=== PATIENT | male | born 1945 | race African-American/Black ===

== ENCOUNTER 2024-07-07 12:12 | Emergency (ER) | payer MEDICARE, OTHER, SELFPAY ==
[2024-07-07] VITALS (11 sets, daily range): BP systolic 100–136; BP diastolic 71–88; PULSE 37–89; RESP 10–21; TEMP 36.6–36.7; O2SAT 92–100; BMI 28.3
--- NOTE | 2024-07-07 12:22 | PC.NURSE ---
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 pt fell and had +LOC. pt c/o L humeral pain that is sharp and 10/10. pt states he is unable to lift his arm. pt is on eliquis. pt A&OX4
--- NOTE | 2024-07-07 12:22 | PC.NURSE ---
ASSESSMENT pt arrived to room
--- NOTE | 2024-07-07 12:26 | ECG_ITS ---
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
--- NOTE | 2024-07-07 12:35 | CT_ITS ---
FINAL REPORT TECHNIQUE: Noncontrast exam This study was performed with techniques to keep radiation doses as low as reasonably achievable, (ALARA). Individualized dose reduction techniques using automated exposure control or adjustment of mA and/or kV according to the patient's size were employed. CLINICAL HISTORY: fall, head trauma COMPARISON: None FINDINGS: Mild atrophy and chronic ischemic white matter changes are noted. No cortical edema is present. There is no mass or hemorrhage. Ventricles are normal. Bone windows show no skull fracture or obvious obstructive lesion. IMPRESSION: No acute intracranial abnormality or obvious mass. Mild atrophy and chronic ischemic white matter changes as above. Reviewed, Interpreted and Dictated by May Gaspar MD Transcribed by Chloe Grullon Authenticated and [facility]
--- NOTE | 2024-07-07 12:35 | XR_ITS ---
FINAL REPORT CLINICAL HISTORY: Fall COMPARISON: None FINDINGS: SINGLE VIEW PELVIS: A single view of the pelvis was obtained. There is no acute fracture or dislocation. Vizualized joint spaces are normally aligned. Soft tissues are unremarkable. IMPRESSION: No acute bony abnormality. Reviewed, Interpreted and Dictated by May Gaspar MD Transcribed by Jazz Nicholson Authenticated and [facility]
--- NOTE | 2024-07-07 12:35 | CT_ITS ---
FINAL REPORT TECHNIQUE: Thin section axial CT with sagittal reconstruction without contrast This study was performed with techniques to keep radiation doses as low as reasonably achievable, (ALARA). Individualized dose reduction techniques using automated exposure control or adjustment of mA and/or kV according to the patient''s size were employed. CLINICAL HISTORY: fall COMPARISON: None FINDINGS: CT CERVICAL SPINE: CT examination of the cervical spine demonstrates degenerative disc disease at multiple levels, most severe at the C6-7 level. No fracture or malalignment is identified. Multilevel degenerative changes are present without acute bony abnormality. Note is made of thyromegaly with bilateral thyroid nodules present. IMPRESSION: Degenerative disc disease without acute bony abnormality. Thyromegaly with bilateral thyroid nodules. If further evaluation is desired, thyroid ultrasound is suggested. Reviewed, Interpreted and Dictated by May Gaspar MD Transcribed by Chloe Grullon Authenticated and [facility]
--- NOTE | 2024-07-07 12:35 | XR_ITS ---
FINAL REPORT CLINICAL HISTORY: Fall COMPARISON: None FINDINGS: No acute pulmonary opacity is present. There is no evidence of effusion or pneumothorax. Mediastinum is unremarkable. A left-sided pacer is present. Heart size is mildly enlarged. IMPRESSION: No acute findings. Reviewed, Interpreted and Dictated by May Gaspar MD Transcribed by Jazz Nicholson Authenticated and [facility]
--- NOTE | 2024-07-07 12:36 | XR_ITS ---
FINAL REPORT CLINICAL HISTORY: Fall, left shoulder/arm pain COMPARISON: None FINDINGS: 3 views of the left shoulder show no evidence of acute displaced fracture or dislocation of the visualized bony architecture. There are mild degenerative changes. Superior subluxation is noted of the glenohumeral joint, probably related to rotator cuff disease. IMPRESSION: No acute bony abnormality. Reviewed, Interpreted and Dictated by May Gaspar MD Transcribed by Jazz Nicholson Authenticated and [facility]
--- NOTE | 2024-07-07 12:37 | XR_ITS ---
FINAL REPORT CLINICAL HISTORY: Fall, left shoulder/arm pain COMPARISON: None FINDINGS: Two views show no evidence of an acute, displaced fracture of the visualized bony architecture. There is superior subluxation of the humeral head, likely related to rotator cuff disease. IMPRESSION: No acute bony abnormality. Reviewed, Interpreted and Dictated by May Gaspar MD Transcribed by Jzaz Nicholson Authenticated and . [facility]
--- NOTE | 2024-07-07 12:51 | ED_ITS ---
Discharge Plan Disposition Patient Disposition: Home, Self-Care Condition: Good Referrals Follow up/Referrals: Provider,Referral, MD [Primary Care Provider] - See instructions Activity Restrictions/Add. Instructions Additional Instructions/Restrictions: Please return to the emergency department for any worsening signs or symptoms. Please follow-up with PCP and flag decorator within the upcoming days. Please call for the detailed report of your echocardiogram that was performed here today. Per flag decorator estimate you have a 25% ejection fraction. Please follow-up with your flag decorator for comparison of past echocardiograms. Clinical Impressions Clinical Impression: Episode of syncope, Pre-syncope, CHF (congestive heart failure), CAD (coronary artery disease), History of seizure, Type 2 diabetes mellitus Instructions Patient Instructions: DI for Syncope in Adults (Fainting) Print Language Print Language: Colombian Discharge ED Provider: Kailash Padgett Adult HPI <RE Aguila - Last Filed: 07/07/24 16:41> General Chief complaint: Syncope Stated complaint: AO-Fall 1150am-Pain in L shoulder Time Seen by Provider: 07/07/24 12:34 Mode of Arrival: Wheelchair Source of Information: Patient Limitations: No Limitations Description of Symptoms (Recalled from ER Triage Doc. by RN): Patient states he was standing when he got light headed and dizzy, and sustained a fall onto his left shoulder. Endorses pain in the left shoulder. Patient presents with . states, He has an extensive history. So I wanted to get him checked out. Denies pre-treating with OTC pain medication prior to arrival. History of Present Illness HPI narrative: This is a 78-year-old male who presents to the emergency department accompanied by his significant other for a presyncopal versus syncopal episode that happened this morning, patient states he was getting up and going to the kitchen when he felt a little bit lightheaded, however he ambulated unaffected to the kitchen when he had to stop at the counter , he remembers most of the event and prior to the event had some presyncopal type features however, he unsure if he completely lost consciousness. But states he was in the floor and admits to pain/striking the left shoulder,/arm, denies striking the head but he is quite unsure. Denies any neck pain, back pain, denies any fever chills admits to chronic cough, denies any chest pain, denies abdominal pain nausea vomiting constipation diarrhea, denies melena hematuria hematochezia or hematemesis, denies any urinary type symptomatology. Spouse/family members at the bedside and provides some of the history. Patient ambulates with a walker at baseline, has some balance deficits due to ongoing type 2 diabetes with diabetic polyneuropathy, osteoarthritis of both knees, patient also has past medical history consistent with TIA/CVA, atrial fibrillation with implantable pacemaker/defibrillator on anticoagulation therapy with Eliquis, CAD with status post 6-8 stents this is data deficient, patient has chronic cough and concern for agent orange , according to family at the bedside follows with glove cutter for several spots on the lung , for this. Other past medical history consistent with seizure disorder on antiepileptic therapy with Keppra, prior history of colon cancer status post right hemicolectomy, hyperlipidemia, he is on diuretic therapy with Bumex, and is on Entresto for data deficient heart failure GERD. Denies any history of current substance use is a former smoker denies any alcohol or drug use, initial triage vitals are unremarkable at this time. Onset (ago): hour(s) Related Data Allergies Allergy/AdvReac Type Severity Reaction Status Date / Time niacin Allergy Rash Verified 07/07/24 12:37 [facility] <RE Aguila - Last Filed: 07/07/24 16:41> [facility] Disclaimer: The information contained in this section may have been updated after the patient was seen, as this information can be updated by other users. Social History (Updated 07/07/24 @ 15:15 by Kailash Padgett MD) Smoking Status: Never smoker alcohol intake: never current occupational status: other Travel in the last 8 weeks: None Have you lived/traveled outside US in past 30 days?: No Contact w/someone who lives/traveled outside US past 30 days?: No Exposure to someone with infectious disease in past 14 days?: No Do you have a fever (greater than 100.4 F or 38 C)?: No Have you tested positive for COVID-19: No Exposed to someone with COVID-19 in past 14 days?: No Do you have a sore throat?: No Do you have a cough?: No Do you have any weakness?: No Do you have any diarrhea?: No Are you experiencing any unusual bleeding?: No Do you have any muscle aches/pain?: No Do you have any abdominal pain?: No Are you experiencing loss of taste or smell?: No <RE Aguila - Last Filed: 07/07/24 16:41> ROS Obtained: Yes All systems reviewed & no additional complaints except as documented Physical Exam <RE Aguila - Last Filed: 07/07/24 16:41> General General appearance: alert and in no apparent distress Head Head exam: atraumatic and normocephalic Eye Eye exam: Present PERRL and EOMI ENT ENT exam: Present mucous membranes moist Neck Neck exam: Present normal inspection Chest Chest inspection: Present normal inspection and symmetric chest wall rise Respiratory Respiratory exam: Present normal lung sounds bilaterally; Absent respiratory distress, wheezes, stridor or accessory muscle use Cardiovascular Cardiovascular exam: Present regular rate and normal rhythm Abdominal Exam Abdominal exam: Present soft and scar; Absent tenderness, guarding, rebound or rigidity Comment: Scars present from previous hemicolectomy, on the right lower quadrant. Otherwise nontenderness to palpation. Extremities Exam Extremities exam: Present normal inspection, tenderness, edema and other (There are some mild pain to palpation and pain limited range of motion to the left shoulder joint, shoulder examination/ligamentous test were deferred due to patient stated condition, pain to palpation over the proximal humerus, shoulder on the lateral aspect of the humeral head, extending to the mi); Absent full ROM Back Exam Back exam: Present normal inspection and full ROM; Absent tenderness, paraspinal tenderness or vertebral tenderness Neurological Exam Neurological exam: Present alert and oriented X3 Psychiatric Psychiatric exam: Present normal affect Skin Skin exam: Present warm and dry Medical Decision Making <RE Aguila - Last Filed: 07/07/24 16:41> Medical Records Medical records reviewed: Yes I reviewed the patient's medical records. Screening: Per USPSTF and CDC recommendations, given the prevalence of disease in our region, it is our hospital?s policy to screen for HIV and viral Hepatitis for all patients aged 18 and over and those with ongoing risk factors. [place]ilo Inquiry Pt receiving controlled substance: Yes Camilo was queried for this patient: No Vital Signs: 07/07/24 12:16 07/07/24 12:48 07/07/24 13:00 Temperature 98.1 F Temperature Source Oral Pulse Rate 82 Pulse Rate [Orthostatic Lying] 78 Pulse Rate [Orthostatic Sitting] 88 Pulse Rate [Orthostatic Standing] 89 Pulse Rate [Radial] 83 Respiratory Rate 16 Blood Pressure 100/71 L Blood Pressure [Orthostatic Lying Right Arm] 112/75 Blood Pressure [Orthostatic Sitting Right Arm] 104/75 L Blood Pressure [Orthostatic Standing Right Arm] 104/77 L Blood Pressure [Right Arm] 136/88 Blood Pressure Mean 77 Blood Pressure Mean [Right Arm] 104 Blood Pressure Source [Right Arm] Automatic Cuff 02 Sat by Pulse Oximetry 97 98 Oxygen Delivery Method Room Air Room Air 07/07/24 13:20 07/07/24 13:30 07/07/24 14:30 Temperature Temperature Source Pulse Rate 71 37 L 64 Pulse Rate [Orthostatic Lying] Pulse Rate [Orthostatic Sitting] Pulse Rate [Orthostatic Standing] Pulse Rate [Radial] Respiratory Rate 15 10 L 12 Blood Pressure 120/81 108/73 L Blood Pressure [Orthostatic Lying Right Arm] Blood Pressure [Orthostatic Sitting Right Arm] Blood Pressure [Orthostatic Standing Right Arm] Blood Pressure [Right Arm] Blood Pressure Mean Blood Pressure Mean [Right Arm] Blood Pressure Source [Right Arm] 02 Sat by Pulse Oximetry 96 96 98 Oxygen Delivery Method Room Air 07/07/24 15:04 07/07/24 15:30 07/07/24 16:01 Temperature Temperature Source Pulse Rate 79 75 75 Pulse Rate [Orthostatic Lying] Pulse Rate [Orthostatic Sitting] Pulse Rate [Orthostatic Standing] Pulse Rate [Radial] Respiratory Rate 21 18 20 Blood Pressure 117/75 106/78 L 136/80 Blood Pressure [Orthostatic Lying Right Arm] Blood Pressure [Orthostatic Sitting Right Arm] Blood Pressure [Orthostatic Standing Right Arm] Blood Pressure [Right Arm] Blood Pressure Mean Blood Pressure Mean [Right Arm] Blood Pressure Source [Right Arm] 02 Sat by Pulse Oximetry 92 L 99 100 Oxygen Delivery Method Room Air Room Air Room Air 07/07/24 16:30 07/07/24 16:44 Temperature 98 F Temperature Source Pulse Rate 78 81 Pulse Rate [Orthostatic Lying] Pulse Rate [Orthostatic Sitting] Pulse Rate [Orthostatic Standing] Pulse Rate [Radial] Respiratory Rate 15 19 Blood Pressure 123/82 123/82 Blood Pressure [Orthostatic Lying Right Arm] Blood Pressure [Orthostatic Sitting Right Arm] Blood Pressure [Orthostatic Standing Right Arm] Blood Pressure [Right Arm] Blood Pressure Mean Blood Pressure Mean [Right Arm] Blood Pressure Source [Right Arm] 02 Sat by Pulse Oximetry 100 Oxygen Delivery Method Room Air Lab Data Lab results reviewed: Yes I reviewed the patient's lab results. Lab Results 07/07/24 12:41: WBC 5.2, RBC 5.61, Hgb 15.2, Hct 47.8, MCV 85.2, MCH 27.1, MCHC 31.8, RDW 13.7, Plt Count 162, MPV 11.4 H, Neut % (Auto) 49.3, Lymph % (Auto) 38.4, Bulloch % (Auto) 10.0 H, Eos % (Auto) 1.7, Baso % (Auto) 0.4, Neut # (Auto) 2.6, Lymph # (Auto) 2.0, Bulloch # (Auto) 0.5, Eos # (Auto) 0.1, Baso # (Auto) 0.0, Sodium 137, Potassium 4.6, Chloride 103, Carbon Dioxide 29, Anion Gap 9.6, BUN 26 H, Creatinine 1.30 H, Estimated Creat Clear 62, Estimated GFR 53 L, Est GFR ( Amer) 64, Glucose 96, Calcium 9.6, Magnesium 1.7, Total Bilirubin 0.5, AST 34, ALT 37, Alkaline Phosphatase 60, Total Creatine Kinase 86, Troponin I < 0.01, NT-Pro-B Natriuret Pep 1220 H, Total Protein 7.3, Albumin 4.4, Globulin 2.9, Albumin/Globulin Ratio 1.5 07/07/24 15:30: Troponin I < 0.01 07/07/24 12:41 07/07/24 12:41 Orders (Tests/Meds): ED MEDICATIONS Discontinued Medications Generic Name Dose Route Start Last Admin Trade Name Freq PRN Reason Stop Dose Admin Hydrocodone Bitart/Acetaminophen 1 tab 07/07/24 12:47 07/07/24 13:02 Hydrocodone/Apap 5/325 Mg Tablet PO 07/07/24 12:48 1 tab ONCE ONE Administration ORDERS Category Date Time Status CT cervical spine wo con Stat Cat Scan 07/07/24 12:[address] head/brain wo con Stat Cat Scan 07/07/24 12:[address] humerus LT wo con Stat Cat Scan 07/07/24 13:[address] shoulder LT wo con Stat Cat Scan 07/07/24 13:46 Completed Humerus XR left [XR humerus LT] Stat Exams 07/07/24 12:37 Completed Pelvis XR 1-2 views [XR pelvis 1-2V] Stat Exams 07/07/24 12:35 Completed XR chest portable Stat Exams 07/07/24 12:35 Completed XR shoulder LT min 2V Stat Exams 07/07/24 12:36 Completed CK [Creatine Kinase] Stat Lab 07/07/24 12:41 Completed Complete Blood Count Auto Diff Stat Lab 07/07/24 12:41 Completed Comprehensive Metabolic Panel Stat Lab 07/07/24 12:41 Completed Magnesium Stat Lab 07/07/24 12:41 Completed NT Pro Brain Natriuretic Pep. Stat Lab 07/07/24 12:41 Completed Troponin I Q3H Lab 07/07/24 15:30 Completed Troponin I Q3H Lab 07/07/24 18:30 Ordered Troponin I Stat Lab 07/07/24 12:41 Completed CA echo doppler complete Stat Y 07/07/24 15:14 Completed Medical Decision Narrative: 78-year-old male presents the emergency department with a syncopal episode versus fall, complaining of left shoulder pain/arm pain, differential diagnosis could but limited to orthostatic hypotension, vasovagal syncope, situational syncope, seizure, proximal/shaft humerus fracture, shoulder dislocation, shoulder fracture, cardiogenic syncope, cardiac arrhythmia, electrolyte disturbance, ACS, cute SDH, cervicalgia or cervical spine fracture, intraparenchymal hemorrhage, acute traumatic SAH, closed head injury. I discussed patient case with attending physician Will obtain basic laboratory studies, will obtain troponin and proBNP EKG, creatinine kinase level, urinalysis, magnesium level, lactic acid level, obtain x-ray of the left shoulder, left humerus, chest and pelvis for further evaluation of the patient's fall. Also obtain CT cervical spine and CT head without contrast for further evaluation/characterization. Obtain orthostatic blood pressures, and give 5 mg p.o. [place] for pain. CMP is notable for elevated BUN at 26 and creatinine of 1.3, unsure if this is patient's baseline with extensive past medical history, could be in the setting of acute on chronic kidney disease. Total CK level within normal limits. Troponin within normal limits, proBNP is minimally elevated at 1220 CBC unremarkable orthostatic vital signs are negative, however will obtain repeat EKG The patient CT cervical spine without contrast on the corresponding radiologic report degenerative disc disease without any acute bony abnormality thyromegaly bilateral thyroid nodules a further evaluation desired thyroid ultrasound is suggested. I reviewed the patient's humerus x-ray along the corresponding radiologic report no acute bony abnormality Reviewed the patient's shoulder x-ray along the corresponding radiologic report no acute bony abnormality. Reviewed the patient's chest x-ray along the corresponding radiologic report no acute findings I reviewed the patient's pelvic x-ray along the corresponding radiologic report no acute bony abnormality. Will obtain CT of the left upper extremity shoulder and humerus without contrast for further evaluation as characterization of the patient's persistent shoulder pain/arm pain after fall and negative radiographs. I reviewed the patient's CT of the shoulder and CT of the left humerus along with corresponding radiologic report no acute process, there is a chronic superior subluxation of the humeral head. I discussed this patient's case with on-call flag decorator Dr. Light at approximately 1500, he recommends obtaining echocardiogram for comparison, if patient has decreased EF of 35% or less recommends admission for defibrillator placement. If EF is above 35% he recommends cardiology follow-up. I will order stat echocardiogram. I discussed this patient's case with the on-call flag decorator Dr. Light at 4:24pm, he was able to review the patient's echocardiogram via the PACS imaging system. Recommends admission for defibrillator because the patient's ejection fraction is estimated to be around 25%. I had a long discussion with the patient and family at the bedside regarding this. Patient actually has implantable pacemaker with defibrillator capabilities that was placed in 2011 status post cardiac ablation. Discussed this with flag decorator over the phone once again, patient has defibrillator can be discharged home to self-care with negative troponins EKG currently asymptomatic at the bedside. Patient will need to follow-up with PCP and flag decorator in the near upcoming days. Strict ED return precautions were given to the patient and family the bedside. Patient and family are in agreement with current treatment plan/discharge plan. Padgett: I was consulted by the RAN, and we discussed the complexity of problems being addressed. I approved the treatment and management plan for this patient's care in the emergency department, thus performing a substantial portion of the medical decision making. I personally evaluated the patient at bedside. I agree with the assessment and plan. Patient has limited range of motion of the left upper extremity secondary to pain and tenderness of the left shoulder but there is no obvious deformity, only slight swelling. Patient has full strength of the hand, neurovascularly intact distally. He does not have any new localizing neurologic deficits. 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 at bedside report patient ambulates with a cane/walker which he reports he was reaching for when he started to feel lightheaded before syncopizing. It does not sound like the patient had seizure activity and was not postictal after the fall.. He remembers everything that happened before and after. 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 Repeat ECG pending Repeat ECG approximately 1 hour after initial ECG demonstrates sinus rhythm, rate 74, similar appearing borderline left axis deviation, normal QTc, stable changes indicative of old VT, no STEMI, no dynamic changes. Chest and pelvic x-rays personally interpreted do not demonstrate acute traumatic injury, my personal interpretation, see radiology reads for final interpretation. Personally interpreted left shoulder and humerus x-ray and I do not appreciate obvious osseous injury, however patient still has significant proximal left upper extremity pain, concern for occult fracture. CT ordered. CT does not demonstrate acute osseous injury, chronic degenerative changes present. Patient does have evidence of fluid overload on labs with elevated BNP and chronic kidney disease but no other obvious acute abnormalities. Patient ambulated through the ER, oxygen saturation maintained between 94 and 96% with good heart rate, no hypotension. Cardiology consult recommends echo. Patient handed off to Dr. Patel pending echo. Kailash Padgett MD <Kailash Padgett MD - Last Filed: 07/07/24 15:15> [place] Inquiry Pt receiving controlled substance: No Vital Signs: 07/07/24 12:16 07/07/24 12:48 07/07/24 13:00 Temperature 98.1 F Temperature Source Oral Pulse Rate 82 Pulse Rate [Orthostatic Lying] 78 Pulse Rate [Orthostatic Sitting] 88 Pulse Rate [Orthostatic Standing] 89 Pulse Rate [Radial] 83 Respiratory Rate 16 Blood Pressure 100/71 L Blood Pressure [Orthostatic Lying Right Arm] 112/75 Blood Pressure [Orthostatic Sitting Right Arm] 104/75 L Blood Pressure [Orthostatic Standing Right Arm] 104/77 L Blood Pressure [Right Arm] 136/88 Blood Pressure Mean 77 Blood Pressure Mean [Right Arm] 104 Blood Pressure Source [Right Arm] Automatic Cuff 02 Sat by Pulse Oximetry 97 98 Oxygen Delivery Method Room Air Room Air 07/07/24 13:20 07/07/24 13:30 07/07/24 14:30 Temperature Temperature Source Pulse Rate 71 37 L 64 Pulse Rate [Orthostatic Lying] Pulse Rate [Orthostatic Sitting] Pulse Rate [Orthostatic Standing] Pulse Rate [Radial] Respiratory Rate 15 10 L 12 Blood Pressure 120/81 108/73 L Blood Pressure [Orthostatic Lying Right Arm] Blood Pressure [Orthostatic Sitting Right Arm] Blood Pressure [Orthostatic Standing Right Arm] Blood Pressure [Right Arm] Blood Pressure Mean Blood Pressure Mean [Right Arm] Blood Pressure Source [Right Arm] 02 Sat by Pulse Oximetry 96 96 98 Oxygen Delivery Method Room Air 07/07/24 15:04 07/07/24 15:30 07/07/24 16:01 Temperature Temperature Source Pulse Rate 79 75 75 Pulse Rate [Orthostatic Lying] Pulse Rate [Orthostatic Sitting] Pulse Rate [Orthostatic Standing] Pulse Rate [Radial] Respiratory Rate 21 18 20 Blood Pressure 117/75 106/78 L 136/80 Blood Pressure [Orthostatic Lying Right Arm] Blood Pressure [Orthostatic Sitting Right Arm] Blood Pressure [Orthostatic Standing Right Arm] Blood Pressure [Right Arm] Blood Pressure Mean Blood Pressure Mean [Right Arm] Blood Pressure Source [Right Arm] 02 Sat by Pulse Oximetry 92 L 99 100 Oxygen Delivery Method Room Air Room Air Room Air 07/07/24 16:30 07/07/24 16:44 Temperature 98 F Temperature Source Pulse Rate 78 81 Pulse Rate [Orthostatic Lying] Pulse Rate [Orthostatic Sitting] Pulse Rate [Orthostatic Standing] Pulse Rate [Radial] Respiratory Rate 15 19 Blood Pressure 123/82 123/82 Blood Pressure [Orthostatic Lying Right Arm] Blood Pressure [Orthostatic Sitting Right Arm] Blood Pressure [Orthostatic Standing Right Arm] Blood Pressure [Right Arm] Blood Pressure Mean Blood Pressure Mean [Right Arm] Blood Pressure Source [Right Arm] 02 Sat by Pulse Oximetry 100 Oxygen Delivery Method Room Air Lab Data Lab Results 07/07/24 12:41: WBC 5.2, RBC 5.61, Hgb 15.2, Hct 47.8, MCV 85.2, MCH 27.1, MCHC 31.8, RDW 13.7, Plt Count 162, MPV 11.4 H, Neut % (Auto) 49.3, Lymph % (Auto) 38.4, Bull[place] % (Auto) 10.0 H, Eos % (Auto) 1.7, Baso % (Auto) 0.4, Neut # (Auto) 2.6, Lymph # (Auto) 2.0, [place] # (Auto) 0.5, Eos # (Auto) 0.1, Baso # (Auto) 0.0, Sodium 137, Potassium 4.6, Chloride 103, Carbon Dioxide 29, Anion Gap 9.6, BUN 26 H, Creatinine 1.30 H, Estimated Creat Clear 62, Estimated GFR 53 L, Est GFR ( Amer) 64, Glucose 96, Calcium 9.6, Magnesium 1.7, Total Bilirubin 0.5, AST 34, ALT 37, Alkaline Phosphatase 60, Total Creatine Kinase 86, Troponin I < 0.01, NT-Pro-B Natriuret Pep 1220 H, Total Protein 7.3, Albumin 4.4, Globulin 2.9, Albumin/Globulin Ratio 1.5 07/07/24 15:30: Troponin I < 0.01 Orders (Tests/Meds): ED MEDICATIONS Discontinued Medications Generic Name Dose Route Start Last Admin Trade Name Freq PRN Reason Stop Dose Admin Hydrocodone Bitart/Acetaminophen 1 tab 07/07/24 12:47 07/07/24 13:02 Hydrocodone/Apap 5/325 Mg Tablet PO 07/07/24 12:48 1 tab ONCE ONE Administration ORDERS Category Date Time Status CT cervical spine wo con Stat Cat Scan 07/07/24 12:[address] head/brain wo con Stat Cat Scan 07/07/24 12:[address] humerus LT wo con Stat Cat Scan 07/07/24 13:[address] shoulder LT wo con Stat Cat Scan 07/07/24 13:46 Completed Humerus XR left [XR humerus LT] Stat Exams 07/07/24 12:37 Completed Pelvis XR 1-2 views [XR pelvis 1-2V] Stat Exams 07/07/24 12:35 Completed XR chest portable Stat Exams 07/07/24 12:35 Completed XR shoulder LT min 2V Stat Exams 07/07/24 12:36 Completed CK [Creatine Kinase] Stat Lab 07/07/24 12:41 Completed Complete Blood Count Auto Diff Stat Lab 07/07/24 12:41 Completed Comprehensive Metabolic Panel Stat Lab 07/07/24 12:41 Completed Magnesium Stat Lab 07/07/24 12:41 Completed NT Pro Brain Natriuretic Pep. Stat Lab 07/07/24 12:41 Completed Troponin I Q3H Lab 07/07/24 15:30 Completed Troponin I Q3H Lab 07/07/24 18:30 Ordered Troponin I Stat Lab 07/07/24 12:41 Completed CA echo doppler complete Stat Y 07/07/24 15:14 Completed Medical Decision Narrative: 78-year-old male presents the emergency department with a syncopal episode versus fall, complaining of left shoulder pain/arm pain, differential diagnosis could but limited to orthostatic hypotension, vasovagal syncope, situational syncope, seizure, proximal/shaft humerus fracture, shoulder dislocation, shoulder fracture, cardiogenic syncope, cardiac arrhythmia, electrolyte disturbance, ACS, cute SDH, cervicalgia or cervical spine fracture, intraparenchymal hemorrhage, acute traumatic SAH, closed head injury. I discussed patient case with attending physician Will obtain basic laboratory studies, will obtain troponin and proBNP EKG, creatinine kinase level, urinalysis, magnesium level, lactic acid level, obtain x-ray of the left shoulder, left humerus, chest and pelvis for further evaluation of the patient's fall. Also obtain CT cervical spine and CT head without contrast for further evaluation/characterization. Obtain orthostatic blood pressures, and give 5 mg p.o. [place] for pain. CMP is notable for elevated BUN at 26 and creatinine of 1.3, unsure if this is patient's baseline with extensive past medical history, could be in the setting of acute on chronic kidney disease. Total CK level within normal limits. Troponin within normal limits, proBNP is minimally elevated at 1220 CBC unremarkable orthostatic vital signs are negative, however will obtain repeat EKG The patient CT cervical spine without contrast on the corresponding radiologic report degenerative disc disease without any acute bony abnormality thyromegaly bilateral thyroid nodules a further evaluation desired thyroid ultrasound is suggested. I reviewed the patient's humerus x-ray along the corresponding radiologic report no acute bony abnormality Reviewed the patient's shoulder x-ray along the corresponding radiologic report no acute bony abnormality. Reviewed the patient's chest x-ray along the corresponding radiologic report no acute findings I reviewed the patient's pelvic x-ray along the corresponding radiologic report no acute bony abnormality. Will obtain CT of the left upper extremity shoulder and humerus without contrast for further evaluation as characterization of the patient's persistent shoulder pain/arm pain after fall and negative radiographs. I reviewed the patient's CT of the shoulder and CT of the left humerus along with corresponding radiologic report no acute process, there is a chronic superior subluxation of the humeral head. Padgett: I was consulted by the RAN, and we discussed the complexity of problems being addressed. I approved the treatment and management plan for this patient's care in the emergency department, thus performing a substantial portion of the medical decision making. I personally evaluated the patient at bedside. I agree with the assessment and plan. Patient has limited range of motion of the left upper extremity secondary to pain and tenderness of the left shoulder but there is no obvious deformity, only slight swelling. Patient has full strength of the hand, neurovascularly intact distally. He does not have any new localizing neurologic deficits. 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 at bedside report patient ambulates with a cane/walker which he reports he was reaching for when he started to feel lightheaded before syncopizing. It does not sound like the patient had seizure activity and was not postictal after the fall.. He remembers everything that happened before and after. 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 Repeat ECG pending Repeat ECG approximately 1 hour after initial ECG demonstrates sinus rhythm, rate 74, similar appearing borderline left axis deviation, normal QTc, stable changes indicative of old VT, no STEMI, no dynamic changes. Chest and pelvic x-rays personally interpreted do not demonstrate acute traumatic injury, my personal interpretation, see radiology reads for final interpretation. Personally interpreted left shoulder and humerus x-ray and I do not appreciate obvious osseous injury, however patient still has significant proximal left upper extremity pain, concern for occult fracture. CT ordered. CT does not demonstrate acute osseous injury, chronic degenerative changes present. Patient does have evidence of fluid overload on labs with elevated BNP and chronic kidney disease but no other obvious acute abnormalities. Patient ambulated through the ER, oxygen saturation maintained between 94 and 96% with good heart rate, no hypotension. Cardiology consult recommends echo. Patient handed off to Dr. Patel pending echo. Kailash Padgett MD <Steffanie N Patel, DO - Last Filed: 07/07/24 16:55> Vital Signs: 07/07/24 12:16 07/07/24 12:48 07/07/24 13:00 Temperature 98.1 F Temperature Source Oral Pulse Rate 82 Pulse Rate [Orthostatic Lying] 78 Pulse Rate [Orthostatic Sitting] 88 Pulse Rate [Orthostatic Standing] 89 Pulse Rate [Radial] 83 Respiratory Rate 16 Blood Pressure 100/71 L Blood Pressure [Orthostatic Lying Right Arm] 112/75 Blood Pressure [Orthostatic Sitting Right Arm] 104/75 L Blood Pressure [Orthostatic Standing Right Arm] 104/77 L Blood Pressure [Right Arm] 136/88 Blood Pressure Mean 77 Blood Pressure Mean [Right Arm] 104 Blood Pressure Source [Right Arm] Automatic Cuff 02 Sat by Pulse Oximetry 97 98 Oxygen Delivery Method Room Air Room Air 07/07/24 13:20 07/07/24 13:30 07/07/24 14:30 Temperature Temperature Source Pulse Rate 71 37 L 64 Pulse Rate [Orthostatic Lying] Pulse Rate [Orthostatic Sitting] Pulse Rate [Orthostatic Standing] Pulse Rate [Radial] Respiratory Rate 15 10 L 12 Blood Pressure 120/81 108/73 L Blood Pressure [Orthostatic Lying Right Arm] Blood Pressure [Orthostatic Sitting Right Arm] Blood Pressure [Orthostatic Standing Right Arm] Blood Pressure [Right Arm] Blood Pressure Mean Blood Pressure Mean [Right Arm] Blood Pressure Source [Right Arm] 02 Sat by Pulse Oximetry 96 96 98 Oxygen Delivery Method Room Air 07/07/24 15:04 07/07/24 15:30 07/07/24 16:01 Temperature Temperature Source Pulse Rate 79 75 75 Pulse Rate [Orthostatic Lying] Pulse Rate [Orthostatic Sitting] Pulse Rate [Orthostatic Standing] Pulse Rate [Radial] Respiratory Rate 21 18 20 Blood Pressure 117/75 106/78 L 136/80 Blood Pressure [Orthostatic Lying Right Arm] Blood Pressure [Orthostatic Sitting Right Arm] Blood Pressure [Orthostatic Standing Right Arm] Blood Pressure [Right Arm] Blood Pressure Mean Blood Pressure Mean [Right Arm] Blood Pressure Source [Right Arm] 02 Sat by Pulse Oximetry 92 L 99 100 Oxygen Delivery Method Room Air Room Air Room Air 07/07/24 16:30 07/07/24 16:44 Temperature 98 F Temperature Source Pulse Rate 78 81 Pulse Rate [Orthostatic Lying] Pulse Rate [Orthostatic Sitting] Pulse Rate [Orthostatic Standing] Pulse Rate [Radial] Respiratory Rate 15 19 Blood Pressure 123/82 123/82 Blood Pressure [Orthostatic Lying Right Arm] Blood Pressure [Orthostatic Sitting Right Arm] Blood Pressure [Orthostatic Standing Right Arm] Blood Pressure [Right Arm] Blood Pressure Mean Blood Pressure Mean [Right Arm] Blood Pressure Source [Right Arm] 02 Sat by Pulse Oximetry 100 Oxygen Delivery Method Room Air Lab Data Lab Results 07/07/24 12:41: WBC 5.2, RBC 5.61, Hgb 15.2, Hct 47.8, MCV 85.2, MCH 27.1, MCHC 31.8, RDW 13.7, Plt Count 162, MPV 11.4 H, Neut % (Auto) 49.3, Lymph % (Auto) 38.4, [place] % (Auto) 10.0 H, Eos % (Auto) 1.7, Baso % (Auto) 0.4, Neut # (Auto) 2.6, Lymph # (Auto) 2.0, [place] # (Auto) 0.5, Eos # (Auto) 0.1, Baso # (Auto) 0.0, Sodium 137, Potassium 4.6, Chloride 103, Carbon Dioxide 29, Anion Gap 9.6, BUN 26 H, Creatinine 1.30 H, Estimated Creat Clear 62, Estimated GFR 53 L, Est GFR ( Amer) 64, Glucose 96, Calcium 9.6, Magnesium 1.7, Total Bilirubin 0.5, AST 34, ALT 37, Alkaline Phosphatase 60, Total Creatine Kinase 86, Troponin I < 0.01, NT-Pro-B Natriuret Pep 1220 H, Total Protein 7.3, Albumin 4.4, Globulin 2.9, Albumin/Globulin Ratio 1.5 07/07/24 15:30: Troponin I < 0.01 Orders (Tests/Meds): ED MEDICATIONS Discontinued Medications Generic Name Dose Route Start Last Admin Trade Name Freq PRN Reason Stop Dose Admin Hydrocodone Bitart/Acetaminophen 1 tab 07/07/24 12:47 07/07/24 13:02 Hydrocodone/Apap 5/325 Mg Tablet PO 07/07/24 12:48 1 tab ONCE ONE Administration ORDERS Category Date Time Status CT cervical spine wo con Stat Cat Scan 07/07/24 12:[address] head/brain wo con Stat Cat Scan 07/07/24 12:[address] humerus LT wo con Stat Cat Scan 07/07/24 13:[address] shoulder LT wo con Stat Cat Scan 07/07/24 13:46 Completed Humerus XR left [XR humerus LT] Stat Exams 07/07/24 12:37 Completed Pelvis XR 1-2 views [XR pelvis 1-2V] Stat Exams 07/07/24 12:35 Completed XR chest portable Stat Exams 07/07/24 12:35 Completed XR shoulder LT min 2V Stat Exams 07/07/24 12:36 Completed CK [Creatine Kinase] Stat Lab 07/07/24 12:41 Completed Complete Blood Count Auto Diff Stat Lab 07/07/24 12:41 Completed Comprehensive Metabolic Panel Stat Lab 07/07/24 12:41 Completed Magnesium Stat Lab 07/07/24 12:41 Completed NT Pro Brain Natriuretic Pep. Stat Lab 07/07/24 12:41 Completed Troponin I Q3H Lab 07/07/24 15:30 Completed Troponin I Q3H Lab 07/07/24 18:30 Ordered Troponin I Stat Lab 07/07/24 12:41 Completed CA echo doppler complete Stat Y 07/07/24 15:14 Completed Medical Decision Narrative: 78-year-old male presents the emergency department with a syncopal episode versus fall, complaining of left shoulder pain/arm pain, differential diagnosis could but limited to orthostatic hypotension, vasovagal syncope, situational syncope, seizure, proximal/shaft humerus fracture, shoulder dislocation, shoulder fracture, cardiogenic syncope, cardiac arrhythmia, electrolyte disturbance, ACS, cute SDH, cervicalgia or cervical spine fracture, intraparenchymal hemorrhage, acute traumatic SAH, closed head injury. I discussed patient case with attending physician Will obtain basic laboratory studies, will obtain troponin and proBNP EKG, creatinine kinase level, urinalysis, magnesium level, lactic acid level, obtain x-ray of the left shoulder, left humerus, chest and pelvis for further evaluation of the patient's fall. Also obtain CT cervical spine and CT head without contrast for further evaluation/characterization. Obtain orthostatic blood pressures, and give 5 mg p.o. [place] for pain. CMP is notable for elevated BUN at 26 and creatinine of 1.3, unsure if this is patient's baseline with extensive past medical history, could be in the setting of acute on chronic kidney disease. Total CK level within normal limits. Troponin within normal limits, proBNP is minimally elevated at 1220 CBC unremarkable orthostatic vital signs are negative, however will obtain repeat EKG The patient CT cervical spine without contrast on the corresponding radiologic report degenerative disc disease without any acute bony abnormality thyromegaly bilateral thyroid nodules a further evaluation desired thyroid ultrasound is suggested. I reviewed the patient's humerus x-ray along the corresponding radiologic report no acute bony abnormality Reviewed the patient's shoulder x-ray along the corresponding radiologic report no acute bony abnormality. Reviewed the patient's chest x-ray along the corresponding radiologic report no acute findings I reviewed the patient's pelvic x-ray along the corresponding radiologic report no acute bony abnormality. Will obtain CT of the left upper extremity shoulder and humerus without contrast for further evaluation as characterization of the patient's persistent shoulder pain/arm pain after fall and negative radiographs. I reviewed the patient's CT of the shoulder and CT of the left humerus along with corresponding radiologic report no acute process, there is a chronic superior subluxation of the humeral head. I discussed this patient's case with on-call flag decorator Dr. Light at approximately 1500, he recommends obtaining echocardiogram for comparison, if patient has decreased EF of 35% or less recommends admission for defibrillator placement. If EF is above 35% he recommends cardiology follow-up. I will order stat echocardiogram. I discussed this patient's case with the on-call flag decorator Dr. Light at 4:24pm, he was able to review the patient's echocardiogram via the PACS imaging system. Recommends admission for defibrillator because the patient's ejection fraction is estimated to be around 25%. I had a long discussion with the patient and family at the bedside regarding this. Patient actually has implantable pacemaker with defibrillator capabilities that was placed in 2011 status post cardiac ablation. Discussed this with flag decorator over the phone once again, patient has defibrillator can be discharged home to self-care with negative troponins EKG currently asymptomatic at the bedside. Patient will need to follow-up with PCP and flag decorator in the near upcoming days. Strict ED return precautions were given to the patient and family the bedside. Patient and family are in agreement with current treatment plan/discharge plan. Padgett: I was consulted by the RAN, and we discussed the complexity of problems being addressed. I approved the treatment and management plan for this patient's care in the emergency department, thus performing a substantial portion of the medical decision making. I personally evaluated the patient at bedside. I agree with the assessment and plan. Patient has limited range of motion of the left upper extremity secondary to pain and tenderness of the left shoulder but there is no obvious deformity, only slight swelling. Patient has full strength of the hand, neurovascularly intact distally. He does not have any new localizing neurologic deficits. 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 at bedside report patient ambulates with a cane/walker which he reports he was reaching for when he started to feel lightheaded before syncopizing. It does not sound like the patient had seizure activity and was not postictal after the fall.. He remembers everything that happened before and after. 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 Repeat ECG pending Repeat ECG approximately 1 hour after initial ECG demonstrates sinus rhythm, rate 74, similar appearing borderline left axis deviation, normal QTc, stable changes indicative of old VT, no STEMI, no dynamic changes. Chest and pelvic x-rays personally interpreted do not demonstrate acute traumatic injury, my personal interpretation, see radiology reads for final interpretation. Personally interpreted left shoulder and humerus x-ray and I do not appreciate obvious osseous injury, however patient still has significant proximal left upper extremity pain, concern for occult fracture. CT ordered. CT does not demonstrate acute osseous injury, chronic degenerative changes present. Patient does have evidence of fluid overload on labs with elevated BNP and chronic kidney disease but no other obvious acute abnormalities. Patient ambulated through the ER, oxygen saturation maintained between 94 and 96% with good heart rate, no hypotension. Cardiology consult recommends echo. Patient handed off to Dr. Patel pending echo. MD Jorge Gunn DO: I was consulted by the RAN, and we discussed the complexity of the problems being addressed. I approved the treatment and management plan for this patient's care in the emergency department, thus performing a substantive portion of the medical decision making. Steffanie Patel DO Critical Care <Kailash Padgett MD - Last Filed: 07/07/24 15:15> Critical Care Time Critical Care Time: No
[2024-07-07 12:52] LABS: Basophils % 0.4 % (0.1-2.0); Eosinophils # 0.1 K/mm3 (0.0-0.4); Eosinophils % 1.7 % (0.1-12.0); Hematocrit 47.8 % (42.0-52.0); Hemoglobin 15.2 g/dL (14.1-18.0); Lymphocytes % 38.4 % (10-50); Mean Corpuscular HGB Conc 31.8 g/dL (31.8-35.4); Mean Corpuscular Hemoglobin 27.1 pg (27.0-31.2); Mean Corpuscular Volume 85.2 fl (80-94); Mean Platelet Volume 11.4 fl (7.4-10.4); Monocytes # 0.5 K/mm3 (0.1-1.0); Neutrophils # 2.6 K/mm3 (1.8-7.8); Neutrophils % 49.3 % (37.0-80.0); Platelet Count 162 K/mm3 (142-424); Red Blood Count 5.61 M/mm3 (4.60-6.20); Red Cell Distribution Width 13.7 % (11.5-17.5); White Blood Count 5.2 K/mm3 (4.8-10.8)
[2024-07-07 13:01] LABS: Albumin Level 4.4 g/dl (3.5-5.0); Chloride 103 mmol/L (98-107); Sodium 137 mmol/L (136-145)
[2024-07-07 13:02] LABS: Potassium 4.6 mmoL/L (3.5-5.1)
[2024-07-07] MEDS: HYDROCODONE/APAP 5/325 MG TABLET 1 TAB PO (13:02)
--- NOTE | 2024-07-07 13:02 | PC.NURSE ---
PT GONE TO CT AT THIS TIME VIA STRETCHER
[2024-07-07 13:04] LABS: Alanine Aminotransferase 37 U/L (12-78); Albumin/Globulin Ratio 1.5 (1.1-1.8); Alkaline Phosphatase 60 U/L (38-126); Anion Gap 9.6 mEq/L (5-15); Aspartate Amino Transferase 34 U/L (17-59); Bilirubin,Total 0.5 mg/dl (0.2-1.3); Blood Urea Nitrogen 26 mg/dl (9-20); Carbon Dioxide 29 mmol/L (22.0-30.0); Creatine Kinase 86 U/L (55-170); Creatinine Clearance Estimated 62 mL/min (50-200); Estimated Glomerular Filt Rate 53 ml/min (>60); GFR (African American) 64 ML/MIN (>60); Globulin 2.9 g/dL (1.3-3.2); Total Protein,Serum 7.3 g/dl (6.3-8.2)
[2024-07-07 13:05] LABS: Calcium 9.6 mg/dl (8.4-10.2); Glucose 96 mg/dl (74-100); Magnesium 1.7 mg/dl (1.6-2.3)
[2024-07-07 13:14] LABS: NT Pro Brain Natriuretic Pep. 1220 pg/mL (0-450)
[2024-07-07 13:18] LABS: Troponin I < 0.01 ng/ml (0.00-0.034)
--- NOTE | 2024-07-07 13:34 | ECG_ITS ---
APPROVED REPORT Exam: Resting ECG HR:74 bpm ECG Measurements Heart Rate 74 AXES NJ 202 P 30 QRSd 107 QRS -55 QT 372 T 65 QTc 399 Conclusion SINUS RHYTHM MINIMAL VOLTAGE CRITERIA FOR LVH, CONSIDER NORMAL VARIANT [MEETS CRITERIA IN ONE OF: R(aVL), S(V1), R(V5), R(V5/V6)+S(V1)] ANTERIOR MYOCARDIAL INFARCTION , OF INDETERMINATE AGE [40+ ms Q WAVE AND/OR ST/T ABNORMALITY IN V3/V4] INFERIOR MYOCARDIAL INFARCTION , PROBABLY OLD [40+ ms Q WAVE AND/OR ST/T ABNORMALITY IN II/aVF] Poor R wave progression, likely old anterior and inferior ND, no STEMI, no dynamic changes Electronically signed by : ERIC PABLO, 07/08/2024 07:08:12
--- NOTE | 2024-07-07 13:46 | CT_ITS ---
FINAL REPORT TECHNIQUE: Axial images through the left shoulder were performed by computed tomography. Sagittal and coronal reconstruction images were performed. This study was performed with techniques to keep radiation doses as low as reasonably achievable (ALARA). Individualized dose reduction techniques using automated exposure control or adjustment of mA and/or kV according to the patient's size were employed. CLINICAL HISTORY: Fall, shoulder pain COMPARISON: None FINDINGS: No fracture is identified. There is complete loss of the acromion humeral space, most likely related to chronic rotator cuff disease. There is moderate degenerative change of the glenohumeral joint. Mild degenerative changes are noted in the acromioclavicular joint. The scapula is intact. No soft tissue abnormality. IMPRESSION: Chronic changes without acute bony abnormality. Reviewed, Interpreted and Dictated by May Gaspar MD Transcribed by Jazz Nicholson Authenticated and . [facility]
--- NOTE | 2024-07-07 13:47 | CT_ITS ---
FINAL REPORT TECHNIQUE: Axial images through the left humerus were performed by computed tomography. Sagittal and coronal reconstruction images were performed. This study was performed with techniques to keep radiation doses as low as reasonably achievable (ALARA). Individualized dose reduction techniques using automated exposure control or adjustment of mA and/or kV according to the patient's size were employed. CLINICAL HISTORY: Fall, persistent shoulder/arm pain COMPARISON: None FINDINGS: No fracture is identified or bone destruction. No dislocation identified. No significant degenerative changes identified. There is chronic superior subluxation of the humeral head. No soft tissue abnormality. IMPRESSION: No acute process. Reviewed, Interpreted and Dictated by May Gaspar MD Transcribed by Jazz Nicholson Authenticated and [facility]
--- NOTE | 2024-07-07 13:54 | PC.NURSE ---
PT GONE TO CT AGAIN
--- NOTE | 2024-07-07 14:03 | PC.NURSE ---
PT ARRIVED BACK TO ROOM FROM CT
--- NOTE | 2024-07-07 14:45 | PC.NURSE ---
ROUNDED ON PT STATES NO NEEDS AT THIS TIME, AT BS AND CALL LIGHT IN REACH
--- NOTE | 2024-07-07 15:02 | PC.NURSE ---
Pt ambulating in the cotter with staff to obtain a oxygen saturation and HR during exertion.
--- NOTE | 2024-07-07 15:14 | CA_ITS ---
APPROVED REPORT EXAM: Comprehensive 2D, Doppler, and color-flow Echocardiogram Supervisor Photostat: Norah Singh, RT(R) Ht: 6 ft 0 in Wt: 209lbs BSA: 2.17 BP: 100/71 mmHg Indications: CHF, ex smoker, syncope, DM, hyperlipidemia, fall today with injury to left shoulder, hx TIA/CVA, AFIB, pacemaker/AICD, CAD, hx colon cancer, GERD. Patient states he has history of reduced EF. He states he thinks it was 35-40% at [facility] many years ago. 2D Dimensions LVEF (Hall's) 29.40 % M: 52 - 72 LV Volume 192.50 mL M: 62 - 150 LV Volume Index 88.7 mL/m2 M: 34 - 74 LA Volume 27.10 mL LA Volume Index 12.49 mL/m2 (M/F) 16-34 EF AP4 37.50 % EF AP2 24.0 % EF BP 29.4 % GL Strain -6.1 % M-Mode Dimensions RVDd 2.57 cm (0.9-2.6) LVDd 6.13 cm (3.5-5.7) LVDs 5.52 cm (3.5-5.7) IVSd 1.32 cm (0.6-1.1) PWd 0.95 cm (0.6-1.1) EF (Teich) 21.30% FS 10.00% EDV (Teich) 189.00 mL ESV (Teich) 148.70 mL Left Ventricle The left ventricle is normal size. The left ventricular systolic function is severely reduced. There is increased LV wall thickness. There is severe global hypokinesis present. The anterior, lateral, anterolateral, and inferior lateral LV mcgee, are nearly akinetic. The LV apex is akinetic. Grade 1 diastolic dysfunction. LVEF is 20-25%. Right Ventricle The right ventricle is normal size. The right ventricular systolic function is normal. Atria The left atrium size is normal. The right atrium size is normal. There is no Doppler evidence of interatrial shunt. Aortic Valve The aortic valve is mildly thickened. Trace aortic regurgitation. There is no aortic valvular stenosis. Mitral Valve The mitral valve is normal in structure. No evidence of mitral valve stenosis. Trace mitral regurgitation. Tricuspid Valve Tricuspid valve is grossly normal in structure and function. Trace tricuspid regurgitation. There is insufficient TR jet to estimate RVSP. Pulmonic Valve The pulmonary valve is normal in structure. Trace pulmonic regurgitation. Great Vessels The aortic root is normal in size. The ascending aorta is not well-visualized. IVC is normal in size and collapses >50% with inspiration. Pericardium There is no pericardial effusion. Other Information Study Quality: Fair Conclusion Severely reduced LV systolic function (LVEF 20-25%). The anterior, lateral, anterolateral, and inferior lateral LV mcgee, are nearly akinetic. The LV apex is akinetic. No significant valvular stenosis or regurgitation. Electronically signed by : Flory Kirk MD 07/09/2024 19:23:11
--- NOTE | 2024-07-07 15:30 | PC.NURSE ---
recollected red top and sent to lab
[2024-07-07 16:05] LABS: Troponin I < 0.01 ng/ml (0.00-0.034)
--- NOTE | 2024-07-07 16:07 | PC.NURSE ---
crime scene technician going to reach out to dr howell and he will call dr chacko back with recommendations.
--- NOTE | 2024-07-07 16:18 | PC.NURSE ---
PT WAS GIVEN A TRAY OF FOOD FROM DIETARY
--- NOTE | 2024-07-07 16:19 | PC.NURSE ---
on phone with dante
--- NOTE | 2024-07-07 16:42 | PC.NURSE ---
Arsh bedside updating the pt and
--- NOTE | 2024-07-07 16:42 | PC.NURSE ---
provider ok to not collect lactic at this time
== END 2024-07-07 17:36 | disposition home or self-care (01) ==
PROVIDERS: Physician Assistant; Emergency Provider Emergency Medicine
DX: R55 Syncope and collapse (principal); M25.512 Pain in left shoulder; R42 Dizziness and giddiness; E11.9 Type 2 diabetes mellitus without complications; I25.10 Atherosclerotic heart disease of native coronary artery without angina pectoris; I50.9 Heart failure, unspecified; Z87.898 Personal history of other specified conditions; W18.39XA Other fall on same level, initial encounter; Y93.89 Activity, other specified; Y92.000 Kitchen of unspecified non-institutional (private) residence as the place of occurrence of the external cause
CPT/HCPCS: 70450; 71045; 72125; 72170; 73030; 73060; 73200; 80053; 82550; 83735; 83880; 84484; 85025; 93005; 93306; 99285